=== PATIENT | male | born 1975 | race Caucasian/White ===

== ENCOUNTER 2017-07-04 12:15 | Emergency (ER) | payer BC, OTHER ==
[2017-07-04] MEDS ORDERED: DIPHTH,PERTUSS(ACELL),TET VAC 0.5 ML VIAL IM ONE ×2 (12:42→12:48)
[2017-07-04] MEDS ORDERED: LIDOCAINE HCL 20 ML VIAL ONE (12:42)
--- NOTE | 2017-07-04 13:29 | ERNOTE ---
Medical Problem HPI - General Chief Complaint: Laceration Time Seen by Provider: 07/04/17 12:37 - Immun/Allergies/Home Medications Immunizations: IMMUNIZATION HX History of Influenza Vaccine No Allergies/Adverse Reactions: Allergies acetaminophen [From Percocet] Adverse Reaction (Verified 07/04/17 12:31) oxycodone HCl [From Percocet] Adverse Reaction (Verified 07/04/17 12:31) Home Medications: HOME MEDICATIONS Doxycycline Monohydrate 100 mg PO BID #20 tablet 07/04/17 [Last Taken Unknown] Doxycycline Monohydrate 100 mg PO BID #20 tablet 07/04/17 [Last Taken Unknown] HYDROcodone/ACETAMINOPHEN [Luther 5-325] 1 each PO Q4H #20 tablet 07/04/17 [Last Taken Unknown] traMADol HCL [Ultram] 50 mg PO QID PRN #20 tablet 07/04/17 [Last Taken Unknown] traMADol HCL [Ultram] 50 mg PO QID PRN #20 tablet 07/04/17 [Last Taken Unknown] - Patient's Past Medical History Patient History - Medical: No pertinent hx Patient History - Cardiac/Respiratory: No pertinent hx Patient History - Cancer: Testicular Patient History - Surgical Procedures: Cholecystectomy Patient History - Other: None - Social History Living Situations: home Psych History: No pertinent hx Do you dip or chew tobacco: Yes Alcohol Use: none Drug Use: none - Immunizations History of Influenza Vaccine: No ED Progress - Vital Signs Vital Signs: Vital Signs 07/04/17 12:24 Temperature 36.1 C L Pulse Rate 60 Respiratory 12 Rate Blood Pressure 104/67 O2 Sat by Pulse 98 Oximetry - Progress/Reassessment Chief Complaint: Laceration Departure Clinical Impression: Laceration of finger nail bed Qualifiers: Encounter type: initial encounter Qualified Code(s): S61.319A - Laceration without foreign body of unspecified finger with damage to nail, initial encounter - Departure Disposition: Home self-care Condition: Good Instructions: Nail Bed Injury, [id number], Laceration Care, Adult, Easy-to- Read Referrals: Benjamin Li DO [Primary Care Provider] - Prescriptions: Doxycycline Monohydrate 100 mg PO BID #20 tablet Doxycycline Monohydrate 100 mg PO BID #20 tablet HYDROcodone/ACETAMINOPHEN [Luther 5-325] 1 each PO Q4H #20 tablet traMADol HCL [Ultram] 50 mg PO QID PRN #20 tablet PRN Reason: Moderate Pain traMADol HCL [Ultram] 50 mg PO QID PRN #20 tablet PRN Reason: Moderate Pain
[2017-07-04 17:18] VITALS: BP 110/68
== END 2017-07-04 13:30 | disposition home or self-care (01) ==
LOC: ER 12:15
PROC: 2W3KX1Z Immobilization of Left Finger using Splint (ICD-10-PCS; principal; 2017-07-04)
DX: S61.317A Laceration without foreign body of left little finger with damage to nail, initial encounter (principal); W23.0XXA Caught, crushed, jammed, or pinched between moving objects, initial encounter; Z85.47 Personal history of malignant neoplasm of testis; F17.220 Nicotine dependence, chewing tobacco, uncomplicated
CPT/HCPCS: 29130; 73140; 99283